=== PATIENT | female | born 1960 | race Caucasian/White ===

== ENCOUNTER 2021-03-30 12:39 | Outpatient (REF) | payer OTHER, SELFPAY ==
[2021-03-30 13:08] LABS: Abs Immature Grans 0.11 10^3/uL (0.0-0.06); HGB 9.5 g/dL (11.2-15.7); MCH 27.7 pg (27.0-33.0); MCHC 31.7 % (32.0-36.0); MCV 87.5 fL (80-95); MPV 8.5 fL (8.0-11.0); Nucleated RBC 0 %; RBC 3.43 10^6/uL (3.93-5.22); RDW-SD 57.4 fL; WBC 11.97 10^3/uL (4.4-10.8)
[2021-03-30 13:37] LABS: ALT 13 U/L (14-59); AST 14 U/L (15-37); Albumin 1.9 g/dL (3.4-5.0); Alkaline Phosphatase 81 U/L (46-116); Anion Gap 13.3 mmol/L (3-11); BUN 17 mg/dL (7-18); Bilirubin, Total 0.7 mg/dL (0.2-1.0); CO2 22.7 mmol/L (21.0-32.0); CREATININE 1.1 mg/dL (0.55-1.02); Calcium 8.1 mg/dL (8.5-10.1); Chloride 92 mmol/L (98-107); Estimated GFR 50.84 (mL/min/1.73m2); Glucose 399 mg/dL (74-106); Sodium 128 mmol/L (136-145); Total Protein 6.5 g/dL (6.4-8.2)
[2021-03-30 13:49] LABS: Absolute Eosinophil Count 0.12 10^3/uL (0.0-0.7); Absolute Lymphocyte Count 0.48 10^3/uL (1.2-3.4); Absolute Neutrophil Count 10.77 10^3/uL (1.2-6.7); Bands % 15; Diff Comment Manual Differential; Potassium 2.9 mmol/L (3.5-5.1)
[2021-03-30 13:53] LABS: Hypochromasia 2+; Ovalocytes 2+; Poikilocytes 1+
== END 2021-03-30 12:40 | disposition home or self-care (01) ==
LOC: LBN 12:39
PROVIDERS: PCP Physician Assistant Medical; Visit Provider Internal Medicine Hematology & Oncology
DX: C20 Malignant neoplasm of rectum (principal)
CPT/HCPCS: 80053; 85025